=== PATIENT | female | born 1995 | race African-American/Black ===

== ENCOUNTER 2017-12-02 14:44 | Emergency (ER) | payer SELFPAY ==
[~2017-12-02] VITALS: Ht 152.4 cm; Wt 59.0 kg
[~2017-12-02 14:44] MED LIST: BIRTH CONTROL
[2017-12-02] MEDS ORDERED: IBUPROFEN 200MG TABLET ONE (14:57)
[2017-12-02 14:58] VITALS: BP 105/65
[2017-12-02] MEDS ORDERED: IBUPROFEN 600MG TABLET PO ONE (15:00)
== END 2017-12-02 16:52 | disposition home or self-care (01) ==
LOC: ER 14:44
DX: G44.209 Tension-type headache, unspecified, not intractable (principal); V49.40XA Driver injured in collision with unspecified motor vehicles in traffic accident, initial encounter; Y93.89 Activity, other specified; Y92.89 Other specified places as the place of occurrence of the external cause
CPT/HCPCS: 99282